=== PATIENT | female | born 1990 | race African-American/Black ===

== ENCOUNTER 2017-06-10 20:20 | Emergency (ER) | payer OTHER ==
[~2017-06-10] VITALS: Ht 162.6 cm; Wt 97.8 kg
[2017-06-10] MEDS ORDERED: IBUPROFEN 600MG TABLET PO ONE (22:15)
[2017-06-10 23:59] VITALS: BP 112/75
== END 2017-06-11 | disposition home or self-care (01) ==
LOC: ER 22:00
DX: J02.0 Streptococcal pharyngitis (principal)
CPT/HCPCS: 81025; 87070; 87430; 99284

== ENCOUNTER 2018-04-16 12:42 | Emergency (ER) | payer SELFPAY ==
[~2018-04-16] VITALS: Ht 162.6 cm; Wt 95.0 kg
[2018-04-16] MEDS ORDERED: ACETAMINOPHEN 500MG TABLET PO ONE (13:45)
[2018-04-16] MEDS: IBUPROFEN 600MG TABLET PO ONE ×2 (14:34→14:52)
[2018-04-16 15:45] VITALS: BP 104/42
== END 2018-04-16 16:05 | disposition home or self-care (01) ==
LOC: ER 13:16
DX: J02.0 Streptococcal pharyngitis (principal); F17.200 Nicotine dependence, unspecified, uncomplicated
CPT/HCPCS: 81025; 87430; 99284

== ENCOUNTER 2019-03-08 18:25 | Observation (INO) | payer MEDICAID ==
[~2019-03-08] VITALS: Ht 162.6 cm; Wt 97.5 kg
[2019-03-08 19:20] LABS: CLARITY URINE CLEAR (CLEAR); COLOR URINE YELLOW (YELLOW); KETONES URINE NEGATIVE (NEGATIVE); LEUKOCYTE ESTERASE URINE 2+ (NEGATIVE); NITRITE URINE NEGATIVE (NEGATIVE); OCCULT BLOOD URINE NEGATIVE (NEGATIVE); PROTEIN URINE NEGATIVE (NEGATIVE); SPECIFIC GRAVITY URINE 1.011 (1.005-1.030); UROBILINOGEN URINE 0.2 E.U./dL (0.2-1.0)
[2019-03-08] MEDS ORDERED: CEFAZOLIN 1000MG PREMIX 50 ML IV NR (20:00)
[2019-03-08] MEDS ORDERED: ACETAMINOPHEN 500MG TABLET PO NR (20:00)
[2019-03-08] MEDS: LACTATED RINGERS 1,000 ML IV SCH ×2 (20:01→21:06)
[2019-03-08] MEDS ORDERED: PRENATAL (21:09)
[2019-03-08] MEDS ORDERED: FERR325T6 PO (21:09)
[2019-03-08] MEDS ORDERED: PHENAZOPYRIDINE HCL 100MG TABLET PO NR (21:33)
== END 2019-03-08 22:30 | disposition home or self-care (01) ==
LOC: 8 EST LDRP 18:25
PROVIDERS: ADMIT Obstetrics & Gynecology; ATTEND Obstetrics & Gynecology
DX: O26.892 Other specified pregnancy related conditions, second trimester (principal); R10.30 Lower abdominal pain, unspecified; R30.9 Painful micturition, unspecified; Z3A.21 21 weeks gestation of pregnancy
CPT/HCPCS: 81003; 87086; 96365; 99281; G0378; J0690; 96360; 96361

== ENCOUNTER 2020-01-17 12:09 | Emergency (ER) | payer MEDICAID ==
[~2020-01-17] VITALS: Ht 160 cm; Wt 91.0 kg
[~2020-01-17 12:09] MED LIST: FERR325T6 PO; PRENATAL
[2020-01-17] MEDS ORDERED: CEFTRIAXONE SODIUM 250 MG/VIAL IM ONE (15:00)
[2020-01-17] MEDS ORDERED: AZITHROMYCIN 500 MG TABLET PO ONE (15:00)
[2020-01-17 16:25] VITALS: BP 122/74
== END 2020-01-17 16:38 | disposition home or self-care (01) ==
LOC: ER 12:09
DX: Z20.2 Contact with and (suspected) exposure to infections with a predominantly sexual mode of transmission (principal)
CPT/HCPCS: 81025; 96372; 99283; J0696

== ENCOUNTER 2020-03-15 15:45 | Emergency (ER) | payer MEDICAID ==
[~2020-03-15] VITALS: Ht 172.7 cm; Wt 75.0 kg
[2020-03-15 16:02] VITALS: BP 135/68
[2020-03-15] MEDS ORDERED: IBUPROFEN 600MG TABLET PO ONE (17:30)
== END 2020-03-15 17:41 | disposition home or self-care (01) ==
LOC: ER 15:45
DX: N76.4 Abscess of vulva (principal)
CPT/HCPCS: 99283

== ENCOUNTER 2020-07-31 20:12 | Emergency (ER) | payer MEDICAID ==
[~2020-07-31] VITALS: Ht 162.6 cm; Wt 94.5 kg
[2020-07-31] MEDS ORDERED: IBUPROFEN 600MG TABLET PO ONE (22:45)
[2020-07-31] MEDS ORDERED: BACITRACIN ZINC OINT UDPKT TOP ONE (22:45)
[2020-07-31 23:40] VITALS: BP 119/74
== END 2020-07-31 23:40 | disposition home or self-care (01) ==
LOC: ER 20:12
DX: N75.0 Cyst of Bartholin's gland (principal)
CPT/HCPCS: 10060; 99283

== ENCOUNTER 2021-01-08 19:38 | Emergency (ER) | payer MEDICAID ==
[~2021-01-08] VITALS: Ht 165.1 cm; Wt 91.0 kg
[2021-01-08 20:47] LABS: BASOPHILS % 0.8 % (0.0-2.0); EOSINOPHILS % 1.5 % (0.0-5.0); HEMATOCRIT. 35.6 % (36.0-48.0); HEMOGLOBIN. 11.9 g/dL (12.0-16.0); LYMPHOCYTES % 26.1 % (20.0-50.0); MEAN CORPUSCULAR HEMOGLOBIN 26.5 pg (28.0-32.0); MEAN CORPUSCULAR VOLUME 79.5 fL (81.0-99.0); MEAN PLATELET VOLUME 6.7 fl (7.4-10.4); MONOCYTES % 7.4 % (2.0-8.0); NEUTROPHILS % 64.2 % (40.0-76.0); PLATELET 366 x1000/uL (130-400); RED BLOOD CELL COUNT 4.48 mill/uL (4.2-5.4); RED CELL DISTRIBUTION WIDTH 14.4 % (11.6-14.6)
[2021-01-08 20:49] LABS: CHLORIDE 106 mEq/L (98-107)
[2021-01-08 20:59] LABS: HCG SCREEN NEGATIVE
[2021-01-09 00:25] VITALS: BP 113/65
== END 2021-01-09 00:37 | disposition home or self-care (01) ==
LOC: ER 19:38
DX: R55 Syncope and collapse (principal); R07.89 Other chest pain; R06.02 Shortness of breath
CPT/HCPCS: 36415; 71045; 80053; 84484; 84703; 85025; 85379; 93005; 99284; 99285

== ENCOUNTER 2021-11-30 14:15 | Emergency (ER) | payer MEDICAID ==
[~2021-11-30] VITALS: Ht 162.6 cm; Wt 72.0 kg
[2021-11-30] MEDS ORDERED: ACETAMINOPHEN 325MG TABLET PO ONE (14:30)
[2021-11-30] MEDS ORDERED: IBUP-2028 MT (16:32)
[2021-11-30] MEDS ORDERED: TOPUD PO (16:32)
[2021-11-30 16:33] VITALS: BP 104/71
== END 2021-11-30 17:11 | disposition home or self-care (01) ==
LOC: ER 14:15
DX: U07.1 COVID-19 (principal)
CPT/HCPCS: 87426; 99283

== ENCOUNTER 2022-02-14 16:28 | Emergency (ER) | payer MEDICAID ==
[~2022-02-14] VITALS: Ht 162.6 cm; Wt 100.0 kg
[~2022-02-14 16:28] MED LIST changes: +IBUP-2028 MT; +TOPUD PO
[2022-02-14] MEDS ORDERED: KETOROLAC 60MG/2ML VIAL IM ONE (17:00)
[2022-02-14] MEDS ORDERED: DEXAMETHASONE 4MG/ML 1ML VIAL PO ONE (17:00)
[2022-02-14] MEDS ORDERED: BENZ1LOZ60 MT (17:39)
[2022-02-14] MEDS ORDERED: IBUP-2029 MT (17:39)
[2022-02-14] MEDS ORDERED: AMOX-494 MT (17:39)
[2022-02-14 17:51] VITALS: BP 125/76
== END 2022-02-14 18:08 | disposition home or self-care (01) ==
LOC: ER 16:28
DX: J02.0 Streptococcal pharyngitis (principal)
CPT/HCPCS: 96372; 99283; J1100; J1885

== ENCOUNTER 2022-06-01 11:57 | Emergency (ER) | payer MEDICAID ==
[~2022-06-01] VITALS: Ht 162.6 cm; Wt 95.0 kg
[~2022-06-01 11:57] MED LIST changes: +AMOX-494 MT; +BENZ1LOZ73 MT; +IBUP-2029 MT
[2022-06-01 12:07] VITALS: BP 128/91
[2022-06-01] MEDS ORDERED: KETOROLAC 60MG/2ML VIAL IM ONE (15:00)
== END 2022-06-01 15:53 | disposition left against medical advice (07) ==
LOC: ER 12:05
DX: R51.9 Headache, unspecified (principal); Z20.822 Contact with and (suspected) exposure to COVID-19
CPT/HCPCS: 81025; 87426; 99283; C9803; J1885

== ENCOUNTER 2022-07-07 12:03 | Emergency (ER) | payer MEDICAID | END 2022-07-07 12:48 | disposition left against medical advice (07) | LOC: ER 12:03 | DX: Z53.21 Procedure and treatment not carried out due to patient leaving prior to being seen by health care provider (principal) ==

== ENCOUNTER 2022-07-07 18:51 | Emergency (ER) | payer MEDICAID ==
[~2022-07-07] VITALS: Ht 162.6 cm; Wt 91.0 kg
[2022-07-07 19:21] VITALS: BP 123/78
== END 2022-07-07 21:11 | disposition left against medical advice (07) ==
LOC: ER 18:51
DX: Z53.21 Procedure and treatment not carried out due to patient leaving prior to being seen by health care provider (principal)

== ENCOUNTER 2022-07-19 18:28 | Emergency (ER) | payer MEDICAID ==
[~2022-07-19] VITALS: Ht 162.6 cm; Wt 101.1 kg
[2022-07-19 19:26] VITALS: BP 120/66
== END 2022-07-19 21:04 | disposition left against medical advice (07) ==
LOC: ER 18:28
DX: Z53.21 Procedure and treatment not carried out due to patient leaving prior to being seen by health care provider (principal)

== ENCOUNTER 2022-10-21 05:53 | Emergency (ER) | payer MEDICAID ==
[~2022-10-21] VITALS: Ht 162.6 cm; Wt 95.0 kg
[2022-10-21 06:08] VITALS: BP 122/75
== END 2022-10-21 11:05 | disposition left against medical advice (07) ==
LOC: ER 05:53
DX: Z53.21 Procedure and treatment not carried out due to patient leaving prior to being seen by health care provider (principal)

== ENCOUNTER 2023-01-13 15:12 | Emergency (ER) | payer MEDICAID ==
[~2023-01-13] VITALS: Ht 162.6 cm; Wt 98.0 kg
[2023-01-13 15:20] VITALS: BP 116/83
[2023-01-13 22:11] LABS: BASOPHILS % 0.6 % (0.0-2.0); CHLORIDE 104 mEq/L (98-107); EOSINOPHILS % 1.2 % (0.0-5.0); HEMATOCRIT. 37.8 % (36.0-48.0); HEMOGLOBIN. 12.4 g/dL (12.0-16.0); LYMPHOCYTES % 19.4 % (20.0-50.0); MEAN PLATELET VOLUME 6.5 fl (7.4-10.4); MONOCYTES % 4.7 % (2.0-8.0); NEUTROPHILS % 74.1 % (40.0-76.0); PLATELET 416 x1000/uL (130-400); RED BLOOD CELL COUNT 4.79 mill/uL (4.2-5.4); RED CELL DISTRIBUTION WIDTH 14.1 % (11.6-14.6)
[2023-01-13 22:13] LABS: CLARITY URINE CLEAR (CLEAR); COLOR URINE YELLOW (YELLOW); KETONES URINE NEGATIVE (NEGATIVE); LEUKOCYTE ESTERASE URINE 1+ (NEGATIVE); NITRITE URINE NEGATIVE (NEGATIVE); OCCULT BLOOD URINE NEGATIVE (NEGATIVE); PH URINE 5.5 (4.5-8.0); PROTEIN URINE NEGATIVE (NEGATIVE); SPECIFIC GRAVITY URINE 1.024 (1.005-1.030); UROBILINOGEN URINE 0.2 E.U./dL (0.2-1.0)
[2023-01-13 22:36] LABS: B-HCG QUANTITATIVE 32722 mIU/mL (<3)
[2023-01-13] MEDS ORDERED: AMOX-494 MT (23:26)
== END 2023-01-13 23:43 | disposition home or self-care (01) ==
LOC: ER 15:12
DX: O20.9 Hemorrhage in early pregnancy, unspecified (principal); O26.891 Other specified pregnancy related conditions, first trimester; H66.91 Otitis media, unspecified, right ear; Z3A.01 Less than 8 weeks gestation of pregnancy
CPT/HCPCS: 36415; 76801; 80053; 81003; 81025; 84702; 85025; 86850; 86900; 99284

== ENCOUNTER 2023-01-27 15:27 | Emergency (ER) | payer MEDICAID ==
[~2023-01-27] VITALS: Ht 162.6 cm; Wt 91.0 kg
[2023-01-27 16:28] LABS: BASOPHILS % 0.4 % (0.0-2.0); EOSINOPHILS % 1.1 % (0.0-5.0); HEMATOCRIT. 33.8 % (36.0-48.0); HEMOGLOBIN. 11.4 g/dL (12.0-16.0); LYMPHOCYTES % 20.8 % (20.0-50.0); MEAN CORPUSCULAR HEMOGLOBIN 26.1 pg (28.0-32.0); MEAN CORPUSCULAR VOLUME 77.7 fL (81.0-99.0); MEAN PLATELET VOLUME 6.5 fl (7.4-10.4); MONOCYTES % 6.3 % (2.0-8.0); NEUTROPHILS % 71.4 % (40.0-76.0); PLATELET 433 x1000/uL (130-400); RED BLOOD CELL COUNT 4.34 mill/uL (4.2-5.4)
[2023-01-27 16:28] LABS: CLARITY URINE CLEAR (CLEAR); COLOR URINE YELLOW (YELLOW); KETONES URINE NEGATIVE (NEGATIVE); LEUKOCYTE ESTERASE URINE TRACE (NEGATIVE); NITRITE URINE NEGATIVE (NEGATIVE); OCCULT BLOOD URINE NEGATIVE (NEGATIVE); PH URINE 5.5 (4.5-8.0); PROTEIN URINE NEGATIVE (NEGATIVE); SPECIFIC GRAVITY URINE 1.026 (1.005-1.030); UROBILINOGEN URINE 0.2 E.U./dL (0.2-1.0)
[2023-01-27 16:30] LABS: CHLORIDE 105 mEq/L (98-107)
[2023-01-27 16:41] LABS: HCG SCREEN POSITIVE
[2023-01-27 20:12] VITALS: BP 113/66
== END 2023-01-27 20:13 | disposition home or self-care (01) ==
LOC: ER 15:27
DX: O46.91 Antepartum hemorrhage, unspecified, first trimester (principal); Z3A.08 8 weeks gestation of pregnancy; Z79.899 Other long term (current) drug therapy
CPT/HCPCS: 36415; 76801; 80053; 81003; 81025; 84702; 84703; 85025; 86850; 86900; 99284

== ENCOUNTER 2023-06-12 19:19 | Observation (INO) | payer BC, MEDICAID ==
[~2023-06-12] VITALS: Ht 162.6 cm; Wt 104.3 kg
[2023-06-12] MEDS ORDERED: PROGESTERONE (20:25)
[2023-06-12 20:50] LABS: CLARITY URINE CLEAR (CLEAR); COLOR URINE YELLOW (YELLOW); GLUCOSE URINE NEGATIVE (NEGATIVE); KETONES URINE TRACE (NEGATIVE); LEUKOCYTE ESTERASE URINE 1+ (NEGATIVE); NITRITE URINE NEGATIVE (NEGATIVE); OCCULT BLOOD URINE NEGATIVE (NEGATIVE); PH URINE 6.5 (4.5-8.0); PROTEIN URINE TRACE (NEGATIVE); SPECIFIC GRAVITY URINE 1.026 (1.005-1.030)
[2023-06-12 20:51] LABS: RBC URINE NONE SEEN /hpf (0-2); SQUAMOUS EPITHELIAL CELL URINE 1+ /lpf (RARE/1+); YEAST URINE NONE SEEN
[2023-06-12 21:05] LABS: BACTERIA URINE NONE SEEN
[2023-06-12] MEDS ORDERED: BETAMETHASONE ACET/BETAMET 30 MG/5 ML VIAL IM ONE (23:00)
== END 2023-06-12 23:55 | disposition left against medical advice (07) ==
LOC: 8 EST LDRP 19:19 → 8EST NSY 21:00 → 8 EST LDRP 21:06
PROVIDERS: ADMIT Obstetrics & Gynecology; ATTEND Obstetrics & Gynecology
DX: O26.873 Cervical shortening, third trimester (principal); O26.893 Other specified pregnancy related conditions, third trimester; R10.2 Pelvic and perineal pain; Z3A.28 28 weeks gestation of pregnancy; Z79.899 Other long term (current) drug therapy
CPT/HCPCS: 59025; 96372; 81003; 82962; 82731; 76818; 76805; 76817; J0702; G0378 ×2; 99281

== ENCOUNTER 2023-06-13 18:36 | Observation (INO) | payer BC ==
[~2023-06-13] VITALS: Ht 162.6 cm; Wt 104.3 kg
[~2023-06-13 18:36] MED LIST changes: +PROGESTERONE
[2023-06-13] MEDS ORDERED: BETAMETHASONE ACET/BETAMET 30 MG/5 ML VIAL IM NR (22:17)
== END 2023-06-13 23:30 | disposition home or self-care (01) ==
LOC: 8 EST LDRP 18:36
PROVIDERS: ADMIT Obstetrics & Gynecology; ATTEND Obstetrics & Gynecology
DX: O26.873 Cervical shortening, third trimester (principal); Z3A.29 29 weeks gestation of pregnancy
CPT/HCPCS: 59025; 96372; J0702; G0378 ×2; 99281

== ENCOUNTER 2023-12-27 12:26 | Emergency (ER) | payer MEDICAID ==
[~2023-12-27] VITALS: Ht 162.6 cm; Wt 99.0 kg
[~2023-12-27 12:26] MED LIST changes: -AMOX-494 MT; -BENZ1LOZ73 MT; -IBUP-2028 MT; -IBUP-2029 MT
[2023-12-27 12:32] VITALS: TEMP 98.9; O2SAT 100
[2023-12-27 13:00] VITALS: BP 103/63; PULSE 119; RESP 16
[2023-12-27] MEDS: KETOROLAC 60MG/2ML VIAL IM ONE (13:00)
[2023-12-27] MEDS: DEXAMETHASONE 4MG TABLET PO ONE (13:00)
[2023-12-27] MEDS: AMOXICILLIN/POTASSIUM CLAVULANATE 875/125MG TAB PO ONE (13:00)
[2023-12-27] MEDS ORDERED: AMOX1TAB16 MT (14:21)
== END 2023-12-27 15:30 | disposition home or self-care (01) ==
LOC: ER 14:15
DX: J02.0 Streptococcal pharyngitis (principal); Z79.899 Other long term (current) drug therapy
CPT/HCPCS: 99283; 96372; J8540; J1885

== ENCOUNTER 2024-10-24 01:18 | Emergency (ER) | payer MEDICAID ==
[~2024-10-24] VITALS: Ht 165.1 cm; Wt 99.0 kg
[~2024-10-24 01:18] MED LIST changes: +AMOX1TAB16 MT
[2024-10-24 01:34] VITALS: BP 117/74; PULSE 86; RESP 16; TEMP 98.4; O2SAT 100; O2SAT 99
[2024-10-24] MEDS ORDERED: BENZ200C52 MT (03:13)
[2024-10-24] MEDS ORDERED: CETI1TAB MT (03:13)
[2024-10-24] MEDS ORDERED: TUSSL MT (03:13)
== END 2024-10-24 03:29 | disposition home or self-care (01) ==
LOC: ER 01:18
DX: B34.9 Viral infection, unspecified (principal); J45.909 Unspecified asthma, uncomplicated; Z79.899 Other long term (current) drug therapy; Z98.890 Other specified postprocedural states
CPT/HCPCS: 71045; 99283

== ENCOUNTER 2024-11-13 10:48 | Emergency (ER) | payer MEDICAID ==
[~2024-11-13] VITALS: Ht 162.6 cm; Wt 90.0 kg
[~2024-11-13 10:48] MED LIST changes: +BENZ200C52 MT; +CETI1TAB MT; +TUSSL MT
[2024-11-13 11:00] VITALS: O2SAT 99
[2024-11-13 11:01] VITALS: BP 112/60; PULSE 75; RESP 16; TEMP 98.3; O2SAT 100
[2024-11-13 11:54] LABS: BASOPHILS % 0.6 % (0.0-2.0); EOSINOPHILS % 2.6 % (0.0-5.0); HEMATOCRIT. 38.4 % (36.0-48.0); HEMOGLOBIN. 12.9 g/dL (12.0-16.0); LYMPHOCYTES % 17.8 % (20.0-50.0); MEAN CORPUSCULAR HEMOGLOBIN 27.4 pg (28.0-32.0); MEAN CORPUSCULAR HGB CONC 33.6 g/dL (31.0-37.0); MEAN CORPUSCULAR VOLUME 81.8 fL (81.0-99.0); MONOCYTES % 5.9 % (2.0-8.0); NEUTROPHILS % 73.1 % (40.0-76.0); PLATELET 361 x1000/uL (130-400); RED CELL DISTRIBUTION WIDTH 13.8 % (11.6-14.6); WHITE BLOOD COUNT 7.1 x1000/uL (4.5-11.0)
[2024-11-13 11:59] LABS: CHLORIDE 107 mEq/L (98-107); POTASSIUM 4.1 mEq/L (3.5-5.1); SODIUM 140 mEq/L (136-145)
[2024-11-13 12:00] LABS: CALCIUM 9.1 mg/dL (8.7-10.4); CARBON DIOXIDE 26 mEq/L (21-32)
[2024-11-13 12:04] LABS: CLARITY URINE CLEAR (CLEAR); COLOR URINE YELLOW (YELLOW); GLUCOSE URINE NEGATIVE (NEGATIVE); KETONES URINE NEGATIVE (NEGATIVE); LEUKOCYTE ESTERASE URINE TRACE (NEGATIVE); NITRITE URINE NEGATIVE (NEGATIVE); OCCULT BLOOD URINE NEGATIVE (NEGATIVE); PH URINE 6.5 (4.5-8.0); PROTEIN URINE NEGATIVE (NEGATIVE); SPECIFIC GRAVITY URINE 1.025 (1.005-1.030)
[2024-11-13 12:05] LABS: CREATININE 0.7 mg/dL (0.6-1.0); GLUCOSE 97 mg/dL (70-105); UREA NITROGEN BLOOD 11 mg/dL (9-23)
[2024-11-13 13:43] LABS: SQUAMOUS EPITHELIAL CELL URINE FEW /lpf (RARE/1+)
[2024-11-13 13:44] LABS: BACTERIA URINE TRACE; MUCUS URINE TRACE /lpf (< = 2+)
[2024-11-13 13:46] LABS: RBC URINE NONE SEEN /hpf (0-2); WBC URINE 0-2 /hpf (0-2)
[2024-11-13 17:49] LABS: HCG SCREEN NEGATIVE
== END 2024-11-13 16:25 | disposition left against medical advice (07) ==
LOC: ER 12:29
DX: R42 Dizziness and giddiness (principal); R55 Syncope and collapse; J45.909 Unspecified asthma, uncomplicated; Z98.890 Other specified postprocedural states
CPT/HCPCS: 36415; 80048; 80320; 81003; 81025; 84703; 85025; 93005; 99284; G0480